=== PATIENT | male | born 2005 | race Caucasian/White ===

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

== ENCOUNTER 2024-02-12 10:52 | Emergency (ER) | payer OTHER ==
[2024-02-12] MEDS ORDERED: FLUORESCEIN SODIUM 1 MG/WRAP ONE (11:24)
--- NOTE | 2024-02-12 11:42 | ER ---
Nurse's Notes [facility] Name: Rae Alvares Age: 18 yrs Sex: Male : 2005 Arrival Date: 02/12/2024 Time: 10:52 Bed 5 Private MD: Diagnosis: Subconjunctival Hemorrhage Presentation: 02/11 11:12 Chief complaint: Patient states: got something in my right eye when I was cleaning my iw trailer on Tuesday, getting more irritated, can still see out of it. Coronavirus screen: At this time, the client does not indicate any symptoms associated with coronavirus-19. Ebola Screen: No symptoms or risks identified at this time. Initial Sepsis Screen: Does the patient meet any 2 criteria? No. Patient's initial sepsis screen is negative. Does the patient have a suspected source of infection? No. Patient's initial sepsis screen is negative. Risk Assessment: Do you want to hurt yourself or someone else? Patient reports no desire to harm self or others. 11:12 Method Of Arrival: Ambulatory iw 11:12 Acuity: ANITA 4 iw 11:47 Onset of symptoms was February 06, 2024. ll1 Historical: - Allergies: 11:14 No Known Allergies; iw - Home Meds: 11:14 None [Active]; iw - PMHx: 11:14 ADD/ADHD; iw - PSHx: 11:14 None; iw - Immunization history:: Adult Immunizations not up to date. - Infectious Disease History:: Denies. - Social history:: Smoking status: Reported history of juuling and/or vaping. Screenin:46 [facility] ED Fall Risk Assessment (Adult) History of falling in the last 3 months, ll1 including since admission No falls in past 3 months (0 pts) Confusion or Disorientation No (0 pts) Intoxicated or Sedated No (0 pts) Impaired Gait No (0 pts) Mobility Assist Device Used No (0 pt) Altered Elimination No (0 pt) Score/Fall Risk Level 0 - 2 = Low Risk Maintained a safe environment, Hourly rounding (assess needs \T\ fall precautionary measures) done. Abuse screen: Denies threats or abuse. Nutritional screening: No deficits noted. Tuberculosis screening: No symptoms or risk factors identified. Assessment: 11:45 General: Appears uncomfortable, Behavior is calm, cooperative, appropriate for age. ll1 Pain: Complains of pain in right upper eyelid Quality of pain is described as aching. EENT: Eyes redness. Lid(s) swollen upper eyelid with bruising noted. Reports pain in right eye. Vital Signs: 11:12 BP 149 / 77; Pulse 105; Resp 16; Temp 97.9; Pulse Ox 89% on R/A; Weight 81.65 kg; iw Height 5 ft. 7 in. ; Pain 5/10; 11:12 Body Mass Index 28.19 (81.65 kg, 170.18 cm) - Percentile 89.9 % iw 11:12 Pain Scale: Adult iw ED Course: 10:56 Patient arrived in ED. ra3 11:03 Christiano Molina PA is PHCP. jr8 11:03 Anjana Bhatti MD is Attending Physician. jr8 11:14 Triage completed. iw 11:14 Arm band placed on. iw 11:23 Mike Adame RN is Primary Nurse. ll1 11:41 Niels Singh MD is Referral Physician. jr8 11:46 No provider procedures requiring assistance completed. Patient did not have IV access ll1 during this emergency room visit. 11:47 Patient has correct armband on for positive identification. Provided Education on: ll1 return to ED for worsening symptoms. Administered Medications: No medications were administered Medication: 11:47 VIS not applicable for this client. ll1 Outcome: 11:42 Discharge ordered by . jr8 11:46 Discharged to home ambulatory, ll1 11:46 Condition: stable 11:46 Discharge instructions given to patient, Instructed on discharge instructions, follow up and referral plans. Demonstrated understanding of instructions, follow-up care, 11:47 Patient left the ED. ll1 Signatures: Dayanara Blanc, RN RN Christiano Molina PA PA jr8 Mike Adame RN RN ll1 Brissa Roth ra3
--- NOTE | 2024-02-12 11:42 | EDPHYS ---
Physician Documentation [facility] Name: Rae Alvares Age: 18 yrs Sex: Male : 2005 Arrival Date: 02/12/2024 Time: 10:52 Bed 5 Private MD: ED Physician Anjana Bhatti HPI: 02/11 11:37 This 18 yrs old Male presents to ER via Ambulatory with complaints of Foreign Body In jr8 Eye - Right. 11:37 Onset: The symptoms/episode began/occurred acutely. Associated signs and symptoms: jr8 Pertinent positives: None. Patient does not utilize any form of vision correction. Severity of symptoms: At their worst the symptoms were moderate in the emergency department the symptoms are unchanged. The patient has not experienced similar symptoms in the past. 18-year-old male patient presented to the emergency room with complaints of right eye pain. Stated that he thought a piece of fiberglass may have gotten in there, over the last 24-48 hrs. noticed that his eyes started to swell and have blood around the eye.. Historical: - Allergies: 11:14 No Known Allergies; iw - Home Meds: 11:14 None [Active]; iw - PMHx: 11:14 ADD/ADHD; iw - PSHx: 11:14 None; iw - Immunization history:: Adult Immunizations not up to date. - Infectious Disease History:: Denies. - Social history:: Smoking status: Reported history of juuling and/or vaping. ROS: 11:37 ENT: Negative for injury, pain, and discharge, Neck: Negative for injury, pain, and jr8 swelling, Cardiovascular: Negative for chest pain, palpitations, and edema, Respiratory: Negative for shortness of breath, cough, wheezing, and pleuritic chest pain, Abdomen/GI: Negative for abdominal pain, nausea, vomiting, diarrhea, and constipation, Back: Negative for injury and pain, MS/Extremity: Negative for injury and deformity, Skin: Negative for injury, rash, and discoloration, Neuro: Negative for headache, weakness, numbness, tingling, and seizure, 11:37 Eyes: Positive for pain, swelling, Exam: 11:37 Visual Acuity: Visual acuity is within normal limits. jr8 11:37 Constitutional: This is a well developed, well nourished patient who is awake, alert, and in no acute distress. Cardiovascular: Regular rate and rhythm with a normal S1 and S2. No gallops, murmurs, or rubs. Normal PMI, no JVD. No pulse deficits. Respiratory: Lungs have equal breath sounds bilaterally, clear to auscultation and percussion. No rales, rhonchi or wheezes noted. No increased work of breathing, no retractions or nasal flaring. Skin: Warm, dry with normal turgor. Normal color with no rashes, no lesions, and no evidence of cellulitis. MS/ Extremity: Pulses equal, no cyanosis. Neurovascular intact. Full, normal range of motion. Neuro: Awake and alert, GCS 15, oriented to person, place, time, and situation. Motor strength 5/5 in all extremities. Sensory grossly intact. 11:37 Eyes: Periorbital structures: ecchymosis, that is mild, on the right upper eyelid, Pupils: equal, round, and reactive to light and accomodation, Extraocular movements: intact throughout, Conjunctiva: subconjunctival hemorrhage(s), seen in the right eye, Corneas: are normal, no evidence of abrasion, no foreign body, Sclera: no appreciated abnormality, Vital Signs: 11:12 BP 149 / 77; Pulse 105; Resp 16; Temp 97.9; Pulse Ox 89% on R/A; Weight 81.65 kg; iw Height 5 ft. 7 in. ; Pain 5/10; 11:12 Body Mass Index 28.19 (81.65 kg, 170.18 cm) - Percentile 89.9 % iw 11:12 Pain Scale: Adult iw Procedures: 11:37 Eye Exam: No corneal abrasion or other abnormality noted. jr8 MDM: 11:22 Medical Screening Exam initiated jr8 11:37 Differential diagnosis: Corneal abrasion of right eye. Corneal ulcer of right eye. jr8 Foreign body in right eye. Data reviewed: vital signs, nurses notes, and as a result, I will discharge patient. Counseling: I had a detailed discussion with the patient and/or guardian regarding the historical points, exam findings, and any diagnostic results supporting the discharge/admit diagnosis, the need for outpatient follow up, an opthalmologist, to return to the emergency department if symptoms worsen or persist or if there are any questions or concerns that arise at home. ED course: Discussed with patient that he has a subconjunctival hemorrhage without any other acute findings. Limited as we do not have a slit-lamp here and will need to follow-up with ophthalmology. No identified foreign body under magnification noted. Remainder of exam unremarkable. Patient understood and would follow-up. As for the some conjunctival hemorrhage would just need time. Again patient understood. Administered Medications: No medications were administered Disposition Summary: 02/12/24 11:42 Discharge Ordered Notes: Location: Home jr8 Problem: new jr8 Symptoms: have improved jr8 Condition: Stable jr8 Diagnosis - Subconjunctival Hemorrhage jr8 Followup: jr8 - With: Niels Singh MD - When: 1 - 2 days - Reason: Recheck today's complaints, Continuance of care, Re-evaluation by your physician Discharge Instructions: - Discharge Summary Sheet jr8 - Subconjunctival Hemorrhage jr8 Forms: - Medication Reconciliation Form jr8 - Antibiotic Education jr8 - Prescription Opioid Use jr8 - Patient Portal Instructions jr8 - Leadership Thank You Letter jr8 Signatures: Dayanara Blanc RN RN Christiano Jackson PA PA jr8
[2024-02-12 11:59] VITALS: BP 149/77; TEMP 97.9; O2SAT 89
== END 2024-02-12 11:47 | disposition home or self-care (01) ==
LOC: ER 10:52
DX: H11.31 Conjunctival hemorrhage, right eye (principal)
CPT/HCPCS: 99282

== ENCOUNTER 2024-04-04 18:13 | Emergency (ER) | payer OTHER ==
--- NOTE | 2024-04-04 18:42 | ER ---
Nurse's Notes [facility] Name: Rae Alvares Age: 19 yrs Sex: Male : 2005 Arrival Date: 04/04/2024 Time: 18:13 Bed IW1 Private MD: Souleymane Bhatti Diagnosis: Unspecified open wound of right thumb without damage to nail, initial encounter;Cellulitis of other parts of limb-right thumb Presentation: 04/04 18:37 Chief complaint: Patient states: cut his right thumb a couple weeks ago and it has not iw healed up since then. Coronavirus screen: At this time, the client does not indicate any symptoms associated with coronavirus-19. Ebola Screen: No symptoms or risks identified at this time. Initial Sepsis Screen: Does the patient meet any 2 criteria? No. Patient's initial sepsis screen is negative. Does the patient have a suspected source of infection?. Risk Assessment: Do you want to hurt yourself or someone else? Patient reports no desire to harm self or others. Onset of symptoms was March 20, 2024. 18:37 Method Of Arrival: Ambulatory iw 18:37 Acuity: ANITA 4 iw Triage Assessment: 18:40 General: Appears in no apparent distress. Behavior is calm, cooperative. iw Historical: - Allergies: 18:38 No Known Allergies; iw - PMHx: 18:38 ADD/ADHD; iw - Immunization history:: Adult Immunizations not up to date. - Infectious Disease History:: Denies. - Social history:: Smoking status: . Screenin:56 [facility] ED Fall Risk Assessment (Adult) History of falling in the last 3 months, iw including since admission No falls in past 3 months (0 pts) Confusion or Disorientation No (0 pts) Intoxicated or Sedated No (0 pts) Impaired Gait No (0 pts) Mobility Assist Device Used No (0 pt) Altered Elimination No (0 pt) Score/Fall Risk Level 0 - 2 = Low Risk Oriented to surroundings. Abuse screen: Denies threats or abuse. Denies injuries from another. Nutritional screening: No deficits noted. Tuberculosis screening: No symptoms or risk factors identified. Assessment: 18:40 General: Appears in no apparent distress. Behavior is calm, cooperative. Pain: Denies iw pain. Neuro: Level of Consciousness is awake, alert, obeys commands, Oriented to person, place, time, situation, Moves all extremities. Full function. Derm: Wound noted. Musculoskeletal: Range of motion: intact in all extremities. 18:40 Cardiovascular: Patient's skin is warm and dry. Respiratory: Respiratory effort is iw even, unlabored, Respiratory pattern is regular, symmetrical. Derm: Wound noted dorsal aspect of distal phalanx of right thumb, palmar aspect of distal phalanx of right thumb and right thumbnail. Vital Signs: 18:37 BP 125 / 84; Pulse 105; Resp 16; Temp 98.9; Pulse Ox 99% ; Weight 92.99 kg; Height 5 iw ft. 7 in. ; 18:37 Body Mass Index 32.11 (92.99 kg, 170.18 cm) - Percentile 96.8 % iw ED Course: 18:14 Patient arrived in ED. as 18:16 Souleymane Bhatti DO is Private Physician. as 18:16 Sunday Miller [facility]. cp 18:16 Duran Peres MD is Attending Physician. cp 18:38 Triage completed. iw 18:38 Arm band placed on. iw 18:53 Dayanara Blanc, RN is Primary Nurse. iw 18:56 No provider procedures requiring assistance completed. Patient did not have IV access iw during this emergency room visit. Administered Medications: 18:53 Drug: Boostrix Tdap IM 0.5 ml IM once; as a single dose Route: IM; Site: right deltoid; iw 18:53 Drug: Ibuprofen PO 800 mg PO once Route: PO; iw 18:53 Drug: Trimethoprim-Sulfamethoxazole PO (160 mg-800 mg (DS) 1 tablet PO once Route: PO; iw Outcome: 18:42 Discharge ordered by MD. cp 18:56 Discharged to home ambulatory, with family, iw 18:56 Condition: good 18:56 Discharge instructions given to patient, family, Instructed on discharge instructions, follow up and referral plans. medication usage, Demonstrated understanding of instructions, follow-up care, medications, Prescriptions given X 1, 18:57 Patient left the ED. iw Signatures: Dorothy Mederos Irene, RN RN iw Sunday Miller PA PA cp
--- NOTE | 2024-04-04 18:42 | EDPHYS ---
Physician Documentation [facility] Name: Rae Alvares Age: 19 yrs Sex: Male : 2005 Arrival Date: 04/04/2024 Time: 18:13 Bed IW1 Private MD: [facility] ED Physician Duran Peres HPI: 04/04 18:35 This 19 yrs old Male presents to ER via Unassigned with complaints of Thumb Injury. cp 18:35 The patient or guardian reports injury, skin avulsion. The complaints affect the tip of cp right thumb. Onset: The symptoms/episode began/occurred "couple weeks ago". Associated signs and symptoms: Pertinent positives: swelling, erythema of distal phalanx right thumb, Pertinent negatives: cyanosis distally, fever, numbness distally. Historical: - Allergies: 18:38 No Known Allergies; iw - PMHx: 18:38 ADD/ADHD; iw - Immunization history:: Adult Immunizations not up to date. - Infectious Disease History:: Denies. - Social history:: Smoking status: . ROS: 18:37 Constitutional: Negative for body aches, chills, fever, cp 18:37 MS/extremity: Positive for erythema, pain, swelling, tenderness, of the right thumb, avulsion of skin, Negative for paresthesias, 18:37 All other systems are negative, Exam: 18:38 Head/Face: Normocephalic, atraumatic. cp 18:38 Constitutional: The patient appears in no acute distress, alert, awake, comfortable, non-toxic, well developed, well nourished, 18:38 Musculoskeletal/extremity: Extremities: noted in the right thumb: area of missing dermal layer of skin, mild erythema and mild swelling of distal phalanx, no drainage expressed, tender to palpation, nail intact and with no injury, Vital Signs: 18:37 BP 125 / 84; Pulse 105; Resp 16; Temp 98.9; Pulse Ox 99% ; Weight 92.99 kg; Height 5 iw ft. 7 in. ; 18:37 Body Mass Index 32.11 (92.99 kg, 170.18 cm) - Percentile 96.8 % iw MDM: 18:40 Data reviewed: vital signs, nurses notes, and as a result, I will discharge patient. cp 18:42 Medical Screening Exam initiated cp Administered Medications: 18:53 Drug: Boostrix Tdap IM 0.5 ml IM once; as a single dose Route: IM; Site: right deltoid; iw 18:53 Drug: Ibuprofen PO 800 mg PO once Route: PO; iw 18:53 Drug: Trimethoprim-Sulfamethoxazole PO (160 mg-800 mg (DS) 1 tablet PO once Route: PO; iw Disposition: 04/05 16:16 Chart complete. cp Disposition Summary: 04/04/24 18:42 Discharge Ordered Notes: Location: Home cp Problem: new cp Symptoms: have improved cp Condition: Stable cp Diagnosis - Unspecified open wound of right thumb without damage to nail, initial encounter cp - Cellulitis of other parts of limb - right thumb cp Followup: cp - With: Private Physician - When: 2 - 3 days - Reason: Worsening of condition Discharge Instructions: - Discharge Summary Sheet cp - Cellulitis, Adult cp - Deep Skin Avulsion cp Forms: - Medication Reconciliation Form cp - Antibiotic Education cp - Prescription Opioid Use cp - Patient Portal Instructions cp - Leadership Thank You Letter cp Prescriptions: - Bactrim DS 800-160 mg Oral Tablet - take 1 tablet ORAL route every 12 hours for 10 days; 20 tablet; Refills: 0, cp Product Selection Permitted Addendum: 04/07/2024 21:39 I was immediately available for consultation during this patient's visit. I did not e c2 personally see the patient or discuss the patient with the KEITH. . Signatures: Dayanara Blanc RN RN iw Sunday Miller PA PA cp Duran Peres MD MD ec2
[2024-04-04] MEDS ORDERED: IBUPROFEN 400 MG TAB ONE (18:47)
[2024-04-04] MEDS ORDERED: SMZ./TMP. 800/160 MG TABLET ONE (18:47)
[2024-04-04] MEDS ORDERED: TDAP (DIPHTH,PERTUSS(ACELL),TET VAC) 0.5 ML VIAL IMVAC ONE (18:48)
[2024-04-04 19:04] VITALS: BP 125/84; TEMP 98.9; O2SAT 99
== END 2024-04-04 18:57 | disposition home or self-care (01) ==
LOC: ER 18:13
DX: S61.001A Unspecified open wound of right thumb without damage to nail, initial encounter (principal); L03.011 Cellulitis of right finger; W45.8XXA Other foreign body or object entering through skin, initial encounter; Y93.9 Activity, unspecified; Y92.9 Unspecified place or not applicable; Z23 Encounter for immunization
CPT/HCPCS: 96372; 99284

== ENCOUNTER 2024-05-14 20:16 | Emergency (ER) | payer OTHER ==
[2024-05-14] MEDS ORDERED: IBUPROFEN 400 MG TAB ONE (21:00)
[2024-05-14] MEDS ORDERED: SMZ./TMP. 800/160 MG TABLET ONE (21:00)
[2024-05-14] MEDS ORDERED: FLUCONAZOLE 100 MG TAB ONE (21:00)
--- NOTE | 2024-05-14 21:00 | EDPHYS ---
Physician Documentation [facility] Name: Rae Alvares Age: 19 yrs Sex: Male : 2005 Arrival Date: 05/14/2024 Time: 20:16 Bed Treatment Private MD: ED Physician Taz Johnson HPI: 05/14 20:19 This 19 yrs old Male presents to ER via Unassigned with complaints of Groin sp4 Pain - and itching. 05/15 01:43 19-year-old male presents with acute complaint of scrotal rash itching and redness. sp4 This started in the last 2 days. Historical: - Allergies: 05/14 20:22 No Known Allergies; hb - PMHx: 20:22 ADD/ADHD; hb - PSHx: 20:22 None; hb - Immunization history:: Adult Immunizations up to date. - Infectious Disease History:: Denies. - Social history:: Smoking status: Reported history of juuling and/or vaping. - Family history:: not pertinent. ROS: 05/15 01:43 Constitutional: Negative for fever, chills, and weight loss, positive for scrotal sp4 redness tenderness and swelling and itching All other systems are negative, Exam: 01:43 Constitutional: This is a well developed, well nourished patient who is awake, alert, sp4 and in no acute distress. Head/Face: Normocephalic, atraumatic. Eyes: Pupils equal round and reactive to light, extra-ocular motions intact. Lids and lashes normal. Conjunctiva and sclera are not injected. Cornea within normal limits. Periorbital areas with no swelling, redness, or edema. ENT: Nares patent. No nasal discharge, no septal abnormalities noted. Tympanic membranes are normal and external auditory canals are clear. Oropharynx with no redness, swelling, or masses, exudates, or evidence of obstruction, uvula midline. Mucous membranes moist. Neck: Trachea midline, no thyromegaly or masses palpated, and no cervical lymphadenopathy. Supple, full range of motion without nuchal rigidity, or vertebral point tenderness. Chest/axilla: Normal chest wall appearance and motion. Nontender with no deformity. No lesions are appreciated. Cardiovascular: Regular rate and rhythm with a normal S1 and S2. No gallops, murmurs, or rubs. Normal PMI, no JVD. No pulse deficits. Respiratory: Lungs have equal breath sounds bilaterally, clear to auscultation and percussion. No rales, rhonchi or wheezes noted. No increased work of breathing, no retractions or nasal flaring. Abdomen/GI: Soft, with normal bowel sounds. No distension or tympany. No guarding or rebound. No evidence of tenderness throughout. Back: No spinal tenderness. No costovertebral tenderness. Male : Normal genitalia with no discharge , there is significant tinea cruris present bilaterally associated with scrotal redness tenderness but without abscess . There are also scrotal excoriations Skin: Warm, dry with normal turgor. Normal color with no rashes, no lesions, and no evidence of cellulitis. MS/ Extremity: Pulses equal, no cyanosis. Neurovascular intact. Full, normal range of motion. Neuro: Awake and alert, GCS 15, oriented to person, place, time, and situation. Cranial nerves II-XII grossly intact. Motor strength 5/5 in all extremities. Sensory grossly intact. Vital Signs: 05/14 20:20 BP 122 / 72; Pulse 102; Resp 16; Temp 97.6(TE); Pulse Ox 100% on R/A; Weight 81.65 kg; hb Height 5 ft. 8 in. ; Pain 4/10; 20:20 Body Mass Index 27.37 (81.65 kg, 172.72 cm) hb 20:20 Pain Scale: Adult hb [place] Coma Score: 05/15 01:43 Eye Response: spontaneous(4). Motor Response: obeys commands(6). Verbal Response: sp4 oriented(5). Total: 15. MDM: 05/14 20:20 Medical Screening Exam initiated sp4 05/15 01:43 Differential diagnosis: nonspecific abdominal pain, urinary retention, urethritis. Data sp4 reviewed: vital signs, nurses notes, old medical records. ED course: Will treat with fluconazole and Bactrim. Also clotrimazole ointment. Stable for discharge home.. Administered Medications: 05/14 21:03 Drug: Fluconazole PO 200 mg PO once Route: PO; ha1 21:03 Drug: Ibuprofen PO 800 mg PO once Route: PO; ha1 21:03 Drug: Trimethoprim-Sulfamethoxazole PO (160 mg-800 mg (DS) 1 tablet PO once Route: PO; ha1 21:03 Drug: Ondansetron PO 4 mg PO once Route: PO; ha1 Disposition: 05/15 01:46 Chart complete. sp4 Disposition Summary: 05/14/24 20:59 Discharge Ordered Notes: Location: Home sp4 Problem: new sp4 Symptoms: have improved sp4 Condition: Stable sp4 Diagnosis - Tinea cruris, scrotal rash, acute scrotal folliculitis sp4 Followup: sp4 - With: Abrahan Hudson MD - When: 7 - 10 days - Reason: Recheck today's complaints Discharge Instructions: - Discharge Summary Sheet sp4 - Jock Itch, [id number] sp4 Forms: - Patient Portal Instructions sp4 Prescriptions: - Clotrimazole 1 % Topical cream - Apply to affected area 1 application TOPICAL route every 12 hours for 14 days; sp4 15 gram; Refills: 0, Product Selection Permitted - Ibuprofen 800 mg Oral Tablet - take 1 tablet ORAL route every 8 hours As needed take with food; 30 tablet; sp4 Refills: 0, Product Selection Permitted - Fluconazole 200 mg Oral tablet - take 1 tablet ORAL route once daily Take daily for 20 days; 20 tablet; Refills: sp4 0, Product Selection Permitted - Bactrim DS 800-160 mg Oral Tablet - take 1 tablet ORAL route every 12 hours for 10 days; 20 tablet; Refills: 0, sp4 Product Selection Permitted Signatures: Dispatcher [employer] Maria De Jesus Soriano RN RN Michelle Wright RN RN [facility] Taz Johnson MD MD sp4
--- NOTE | 2024-05-14 21:00 | ER ---
Nurse's Notes [facility] Name: Rae Alvares Age: 19 yrs Sex: Male : 2005 Arrival Date: 05/14/2024 Time: 20:16 Bed Treatment Private MD: Diagnosis: Tinea cruris, scrotal rash, acute scrotal folliculitis Presentation: 05/14 20:20 Chief complaint: Pain and itching on testicles and penis x 10 days. Coronavirus screen: hb At this time, the client does not indicate any symptoms associated with coronavirus-19. Ebola Screen: No symptoms or risks identified at this time. Initial Sepsis Screen: Does the patient meet any 2 criteria? No. Patient's initial sepsis screen is negative. Does the patient have a suspected source of infection? No. Patient's initial sepsis screen is negative. Risk Assessment: Do you want to hurt yourself or someone else? Patient reports no desire to harm self or others. Onset of symptoms was May 04, 2023. 20:20 Method Of Arrival: Ambulatory hb 20:20 Acuity: ANITA 4 hb Historical: - Allergies: 20:22 No Known Allergies; hb - PMHx: 20:22 ADD/ADHD; hb - PSHx: 20:22 None; hb - Immunization history:: Adult Immunizations up to date. - Infectious Disease History:: Denies. - Social history:: Smoking status: Reported history of juuling and/or vaping. - Family history:: not pertinent. Vital Signs: 20:20 BP 122 / 72; Pulse 102; Resp 16; Temp 97.6(TE); Pulse Ox 100% on R/A; Weight 81.65 kg; hb Height 5 ft. 8 in. ; Pain 4/10; 20:20 Body Mass Index 27.37 (81.65 kg, 172.72 cm) hb 20:20 Pain Scale: Adult hb [place] Coma Score: 05/15 01:43 Eye Response: spontaneous(4). Motor Response: obeys commands(6). Verbal Response: sp4 oriented(5). Total: 15. ED Course: 05/14 20:18 Patient arrived in ED. ra3 20:19 Taz Johnson MD is Attending Physician. sp4 20:22 Triage completed. hb 20:22 Arm band placed on. hb 20:58 Abrahan Hudson MD is Referral Physician. sp4 Administered Medications: 21:03 Drug: Fluconazole PO 200 mg PO once Route: PO; ha1 21:03 Drug: Ibuprofen PO 800 mg PO once Route: PO; ha1 21:03 Drug: Trimethoprim-Sulfamethoxazole PO (160 mg-800 mg (DS) 1 tablet PO once Route: PO; ha1 21:03 Drug: Ondansetron PO 4 mg PO once Route: PO; ha1 Outcome: 20:59 Discharge ordered by . sp4 21:04 Discharged to home ambulatory, ha1 21:04 Condition: stable 21:04 Discharge instructions given to patient, Instructed on discharge instructions, follow up and referral plans. medication usage, Demonstrated understanding of instructions, follow-up care, medications, Prescriptions given X 4, 21:04 Patient left the ED. ha1 Signatures: Maria De Jesus Londnoo RN RN Michelle Wright RN RN 1 Taz Johnson MD MD sp4 Brissa Roth [facility]
[2024-05-14] MEDS ORDERED: ONDANSETRON 4 MG (ODT) TAB ONE (21:01)
[2024-05-14 21:08] VITALS: BP 122/72; TEMP 97.6; O2SAT 100
== END 2024-05-14 21:04 | disposition home or self-care (01) ==
LOC: ER 20:16
DX: B35.6 Tinea cruris (principal); L73.8 Other specified follicular disorders
CPT/HCPCS: 99283; Q0162